=== PATIENT | male | born 1995 | race Caucasian/White ===

== ENCOUNTER 2024-06-27 13:16 | Emergency (ER) | payer OTHER, SELFPAY ==
[2024-06-27 13:17] VITALS: BP 156/88
--- NOTE | 2024-06-27 13:35 | ED.GENMED ---
History of Present Illness
General
Chief Complaint: Headache
Time Seen by Provider: 06/27/24 13:24
History of Present Illness
History of Present Illness:
Patient is a 29-year-old man presenting to the emergency room with headaches. Patient is for the past 2 months has been having pretty much daily headaches. Is on his forehead into his temples. This pulsating with associated photophobia
phonophobia. No nausea vomiting. No vision changes. No numbness tingling. No weakness. The headache does gradually worsen throughout the day. No neck pain. No fevers or chills. He does take 2 pills of Advil occasionally which resolves the
headache. He has been staying well-hydrated and focusing on his nutrition. He has been avoiding alcohol. He called his PCP and unfortunately cannot see him for quite some time. He does state that he is getting in a few weeks that he
wanted to make sure everything was okay.
Past History
Past History
ED Past Medical History: None
Patient has exhibited threatening behavior?: No
Social History
Tobacco: Non-smoker
Alcohol: None
Drug: None
Personal: Single
Living: with family
Employment: Student
Phy Exam
Physical Exam
Physical Exam:
GENERAL: in no acute distress
HEENT: normocephalic, extraocular movements intact, moist oral mucosa
NECK: normal inspection
RESPIRATORY: no respiratory distress, clear to auscultation bilaterally
CARDIOVASCULAR: regular rate and rhythm
ABDOMEN/: soft, non-distended, non-tender to palpation, no rebound or guarding
EXTREMITIES: non-tender, no edema/swelling
NEUROLOGIC: awake and alert, moves all extremities, equal strength in upper and lower extremities, no sensory deficits, normal finger-nose
SKIN: warm
Course
Orders/Labs/Results
Orders:
Orders
06/27/24 13:35
CT Head W/o Iv Contrast Urgent
Comment:
Reason For Exam: headache
Ketorolac [Toradol] 15 mg IM NOW STA
Metoclopramide [Reglan] 10 mg IM NOW STA
Vital Signs
Initial and Last Documented VS:
Initial Vital Signs
Temp Pulse Resp BP Pulse Ox
97.7 F 87 20 156/88 99
06/27/24 13:17 06/27/24 13:17 06/27/24 13:17 06/27/24 13:17 06/27/24 13:17
Last Documented Vital Signs
Temp Pulse Resp BP Pulse Ox
97.7 F 87 20 156/88 99
06/27/24 13:17 06/27/24 13:17 06/27/24 13:17 06/27/24 13:17 06/27/24 13:17
MDM/Problems Addressed
Differential Diagnosis Includes:
29-year-old man presenting to the emergency department daily headaches for the past 2 months. Vitals unremarkable exam is reassuring. Likely migraine versus tension type headache. No headache red flags. No meningismus or neck stiffness or focal
neurodeficits to suggest meningitis or subarachnoid. Given the chronic nature of the headache we will proceed with CT scan of the head. Will give migraine cocktail. Patient advised to start headache journal and to follow-up with PCP/neuro.
*Critical Care Note
Total Time (30-74mins, 75-104mins- exclusive of procedures): Not Applicable
Update Note
Update Note:
On reevaluation patient's headache has resolved. CT scan of the head negative. Will discharge at this time
ED Attending Note
-
Portions of this chart may have been created with voice recognition software.� Occasional wrong word or��sound alike� substitutions may have occurred due to the inherent limitations of voice recognition software.
Discharge Plan
Departure
Patient Disposition: Home (Routine Discharge)
Date of Disposition: 06/27/24
Time of Disposition: 16:09
Patient with high blood pressure during this ER visit?: No
Discharge Problem:
Headache
Instructions: Headache, Adult (DC)
Prescriptions:
No Action
hydrocodone-acetaminophen 1 TABLET tablet
1 tab PO Q4HPRN PRN (Reason: severe pain) Qty: 6 0RF
Referrals:
UNKNOWN - PT DOES,NOT KNOW [Family Provider] -
Interventions
Interventions:
*Risk Screen - Suicide Last Done: 06/27/24 13:17
*General Assessment Last Done: 06/27/24 13:17
*Neglect/Abuse Screening Last Done: 06/27/24 14:01
*ED COVID-19 Vaccine History Last Done: 06/27/24 14:01
ED- Neurological Assessment Last Done: 06/27/24 14:01
Discharge Date and Time
Print Language: FRENCH
[2024-06-27] MEDS: REGLAN 10 MG IM (13:54)
[2024-06-27] MEDS: TORADOL 15 MG IM (13:56)
== END 2024-06-27 16:29 | disposition home or self-care (01) ==
LOC: EMR 13:16
PROVIDERS: EMERGENCY PHYSICIAN Student in an Organized Health Care Education/Training Program
DX: R51.9 Headache, unspecified (principal); H53.149 Visual discomfort, unspecified
CPT/HCPCS: 96372; 99284; 70450